=== PATIENT | female | born 1955 | race Hispanic/Latino ===

== ENCOUNTER → 2022-03-14 | Day surgery (SDC) | payer MEDICARE ==
[~2022-03-14] MED LIST: BACLOFEN10 MG PO; CARBIDOPA-LEVO1 EACH PO; COMTAN200 MG PO; FENTANYL CITRATE/PF 100MCG/2 ML INJ ONE; MIDAZOLAM HCL 2 MG/2 ML VIAL ONE; MIDAZOLAM HCL 5 MG/ML VIAL ONE; MIRTAZAPINE15 MG PO; OR PHACO EYE KIT ONE; PREOP PHACO EYE KIT ONE; SINEMET 25-1001 EACH PO
[2022-03-14 15:20] VITALS: BP 138/84
== END | disposition home or self-care (01) ==
LOC: OR 11:00
PROVIDERS: ATTEND Ophthalmology
DX: H25.12 Age-related nuclear cataract, left eye (principal); G20 Parkinson's disease; I10 Essential (primary) hypertension; R53.1 Weakness; M19.90 Unspecified osteoarthritis, unspecified site; K21.9 Gastro-esophageal reflux disease without esophagitis; F41.9 Anxiety disorder, unspecified; F32.A Depression, unspecified; Z01.810 Encounter for preprocedural cardiovascular examination; Z79.899 Other long term (current) drug therapy
CPT/HCPCS: 66982; 93005; U0002; J2250; J3010

== ENCOUNTER → 2022-04-04 | Day surgery (SDC) | payer MEDICARE ==
[2022-04-03 13:57] LABS: BASOPHILS % 0.5 % (0.0-1.0); EOSINOPHILS # (AUTO) 0.2 (0.0-0.4); EOSINOPHILS % 3.2 % (0.0-6.0); HEMATOCRIT 43.2 % (34.2-44.1); HEMOGLOBIN 14.1 g/dL (12.0-16.0); LYMPHOCYTES # (AUTO) 2.2 (1.0-3.2); LYMPHOCYTES % 36.1 % (18.0-39.1); MEAN CORPUSCULAR HEMOGLOBIN 32.5 pg (28-32); MEAN CORPUSCULAR HGB CONC 32.6 g/dL (31-35); MEAN CORPUSCULAR VOLUME 99.5 fL (81-99); MONOCYTES # (AUTO) 0.5 (0.2-0.8); MONOCYTES % 7.6 % (4.4-11.3); NEUTROPHILS # (AUTO) 3.2 (2.1-6.9); NEUTROPHILS % 52.4 % (38.7-80.0); PLATELET COUNT 275 x10e3/uL (140-360); RED BLOOD COUNT 4.34 x10e6/uL (3.6-5.1); RED CELL DISTRIBUTION WIDTH 12.5 % (11.7-14.4)
[~2022-04-04] MED LIST changes: -MIDAZOLAM HCL 5 MG/ML VIAL ONE
[2022-04-04 13:20] VITALS: BP 120/82
== END | disposition home or self-care (01) ==
LOC: OR 10:07
PROVIDERS: ATTEND Ophthalmology
DX: H25.11 Age-related nuclear cataract, right eye (principal); K21.9 Gastro-esophageal reflux disease without esophagitis; M19.90 Unspecified osteoarthritis, unspecified site; E78.5 Hyperlipidemia, unspecified; I10 Essential (primary) hypertension; G20 Parkinson's disease; F41.9 Anxiety disorder, unspecified; F32.A Depression, unspecified; Z01.812 Encounter for preprocedural laboratory examination; Z20.822 Contact with and (suspected) exposure to COVID-19; Z79.899 Other long term (current) drug therapy
CPT/HCPCS: 36415; 66984; 85025; U0002; J2250; J3010; V2632